=== PATIENT | male | born 1995 | race Hispanic/Latino ===

== ENCOUNTER 2021-08-20 21:06 | Emergency (ER) | payer SELFPAY ==
--- NOTE | 2021-08-20 22:41 | Emergency Department Report ---
ED Medical Clearance [facility] - General Chief complaint: Medical Clearance Stated complaint: MEDICAL CLEARANCE TO FLY Time Seen by Provider: 08/20/21 21:24 Source: patient Mode of arrival: Ambulatory Allergies/Adverse reactions: Allergies Allergy/AdvReac Type Severity Reaction Status Date / Time No Known Allergies Allergy Verified 08/20/21 21:47 ED Review of Systems ROS: Stated complaint: MEDICAL CLEARANCE TO FLY Other details as noted in HPI Comment: All other systems reviewed and negative ED Physical Exam - General Limitations: No Limitations General appearance: alert, in no apparent distress - Head Head exam: Present: atraumatic, normocephalic - Eye Eye exam: Present: normal appearance - ENT ENT exam: Present: mucous membranes moist - Neck Neck exam: Present: normal inspection, full ROM, other. Absent: tenderness, lymphadenopathy, thyromegaly - Respiratory Respiratory exam: Present: normal lung sounds bilaterally. Absent: respiratory distress, chest wall tenderness, accessory muscle use, decreased breath sounds - Cardiovascular Cardiovascular Exam: Present: regular rate, normal rhythm, normal heart sounds. Absent: bradycardia, systolic murmur, diastolic murmur, rubs, gallop - GI/Abdominal GI/Abdominal exam: Present: soft, normal bowel sounds - Rectal Rectal exam: Present: deferred - Extremities Exam Extremities exam: Present: normal inspection - Back Exam Back exam: Present: normal inspection - Neurological Exam Neurological exam: Present: alert, oriented X3, CN II-XII intact, normal gait. Absent: abnormal gait, motor sensory deficit - Expanded Neurological Exam Expanded Patient oriented to: Present: person, place, time Speech: Present: fluid speech Cerebellar function: Finger to Nose: Normal, Romberg: Normal Best Eye Response ([place]): (4) open spontaneously Best Motor Response ([place]): (6) obeys commands Best Verbal Response ([place]): (5) oriented Artis Total: 15 - Psychiatric Psychiatric exam: Present: normal affect, normal mood. Absent: depressed, agitated, anxious, flat affect - Skin Skin exam: Present: warm, dry, intact, normal color. Absent: rash ED Course Vital Signs 08/20/21 21:32 Temperature 98.4 F Pulse Rate 71 Respiratory 18 Rate Blood Pressure 150/92 O2 Sat by Pulse 97 Oximetry ED Disposition Disposition: HOME / SELF CARE / HOMELESS Condition: Stable Instructions: Medical Screening Exam Additional Instructions: Medicine emergency department for a medical evaluation for fire safety Mr. Gutierrez has no gross limiting factors which prevent him from flying back to the [facility] Referrals: PRIMARY CARE, [Referring] - 3-5 Days
[2021-08-20 23:38] VITALS: BP 150/92
== END 2021-08-20 22:58 | disposition home or self-care (01) ==
LOC: ED 21:06
DX: Z71.84 Encounter for health counseling related to travel (principal)
CPT/HCPCS: 99282